=== PATIENT | male | born 1985 | race Caucasian/White ===

== ENCOUNTER 2018-10-11 03:36 | Emergency (ER) | payer SELFPAY ==
--- NOTE | 2018-10-11 04:10 | EDPHYS ---
Physician Documentation [facility] Name: Austyn Marie Age: 33 yrs Sex: Male : 1985 Arrival Date: 10/11/2018 Time: 03:37 Bed 2 Private MD: ED Physician Greg Stephenson HPI: 10/11 04:03 This 33 yrs old Male presents to ER via Unassigned with complaints of ETOH rn intoxication. 04:03 Pt brought in by EMS after being found on neighbor's yard, intoxicated, on ground, rn denies medical complaints, refuses care, very difficult, stable vitals per EMS, denies drug use or ingestion. Admits to drinking but refuses to tell me how much he drank. . Onset: The symptoms/episode began/occurred today. Severity of symptoms: At their worst the symptoms were moderate. It is unknown whether or not the patient has had similar symptoms in the past. It is unknown whether or not the patient has recently seen a physician. - Family history:: not pertinent. - Hospitalizations: : No recent hospitalization is reported. ROS: 04:03 Constitutional: Negative for fever, chills, and weight loss, Eyes: Negative for injury, rn pain, redness, and discharge, Cardiovascular: Negative for chest pain, palpitations, and edema, Respiratory: Negative for shortness of breath, cough, wheezing, and pleuritic chest pain, Abdomen/GI: Negative for abdominal pain, nausea, vomiting, diarrhea, and constipation, MS/Extremity: Negative for injury and deformity, Skin: Negative for injury, rash, and discoloration, Neuro: Negative for headache, weakness, numbness, tingling, and seizure. Exam: 04:03 Constitutional: This is a well developed, well nourished patient who is awake, alert, rn and in no acute distress. Sitting upright in bed, legs crossed, uncooperative. Head/Face: Normocephalic, atraumatic. Eyes: Pupils equal round and reactive to light, extra-ocular motions intact. Lids and lashes normal. Conjunctiva and sclera are non-icteric and not injected. Cornea within normal limits. Periorbital areas with no swelling, redness, or edema. ENT: MMM Cardiovascular: Regular rate and rhythm. No pulse deficits. Respiratory: Lungs have equal breath sounds bilaterally, clear to auscultation MS/ Extremity: Pulses equal, no cyanosis. Neurovascular intact. Full, normal range of motion. Equal circumference. Neuro: Awake and alert, GCS 15, oriented to person, place, and situation. Cranial nerves II-XII grossly intact. Motor strength 5/5 in all extremities. Sensory grossly intact. Vital Signs: 03:45 jd3 03:45 pt refused vital signs jd3 MDM: 03:37 Patient medically screened. rn 04:03 Differential Diagnosis ETOH intoxication. Data reviewed: vital signs, nurses notes. ED rn course: Patient became combative and argumentative, police called, he was worse with police and they handcuffed him and took him to residential. . 10/11 03:39 Order name: IV Start rn 10/11 03:39 Order name: Glucose Level rn 10/11 03:39 Order name: EKG; Complete Time: 03:40 rn 10/11 03:39 Order name: EKG - Nurse/Tech rn Administered Medications: No medications were administered Disposition: 10/11/18 04:08 Discharged to Home. Impression: Alcohol abuse with intoxication. - Condition is Stable. - Discharge Instructions: Alcohol Intoxication. - Medication Reconciliation Form, Thank You Letter, Antibiotic Education, Prescription Opioid Use form. - Follow up: Private Physician; When: As needed; Reason: Recheck today's complaints, Re-evaluation by your physician. - Problem is new. - Symptoms have improved. Signatures: Dispatcher [employer] EDMS Greg Stephenson MD MD rn Davies, Jonathon, RN RN jd3 Corrections: (The following items were deleted from the chart) 04:16 04:08 10/11/2018 04:08 Discharged to Home. Impression: Alcohol abuse with intoxication. jd3 Condition is Stable. Forms are Medication Reconciliation Form, Thank You Letter, Antibiotic Education, Prescription Opioid Use. Follow up: Private Physician; When: As needed; Reason: Recheck today's complaints, Re-evaluation by your physician. Problem is new. Symptoms have improved. rn
--- NOTE | 2018-10-11 04:18 | ER ---
Nurse's Notes [facility] Name: Austyn Marie Age: 33 yrs Sex: Male : 1985 Arrival Date: 10/11/2018 Time: 03:37 Bed 2 Private MD: Diagnosis: Alcohol abuse with intoxication Presentation: 10/11 03:37 Presenting complaint: EMS states: "the pt was found past out in a yard. pt admits to [facility] drinking.". Transition of care: patient was not received from another setting of care. Onset of symptoms was October 11, 2018. Risk Assessment: Do you want to hurt yourself or someone else? Patient reports no desire to harm self or others. Note pt refusing to answer questions. pt released to [place] [employer] custody after refusing treatment. Care prior to arrival: Medication(s) given: Normal saline infusion, 500 mL, IV initiated. 18 GA, in the right antecubital area. 03:37 Method Of Arrival: EMS: [facility] jd3 03:37 Acuity: JACY 3 jd3 - Family history:: not pertinent. - Hospitalizations: : No recent hospitalization is reported. Assessment: 03:45 General: Appears in no apparent distress. well nourished, Behavior is agitated, jd3 uncooperative, Smells of alcohol. Pain: Denies pain. Neuro: No deficits noted. Cardiovascular: Denies chest pain, shortness of breath. Respiratory: Denies cough, shortness of breath labored breathing. GI: No signs and/or symptoms were reported involving the gastrointestinal system. : No signs and/or symptoms were reported regarding the genitourinary system. EENT: No signs and/or symptoms were reported regarding the EENT system. Derm: Skin is intact, Skin is dry, Skin is normal, Skin temperature is warm. Musculoskeletal: Circulation, motion, and sensation intact. Range of motion: intact in all extremities. 03:50 Reassessment: pt refusing treatment. pt is being belligerent with medical staff and j [employer]. Vital Signs: 03:45 jd3 03:45 pt refused vital signs jd3 ED Course: 03:37 Patient arrived in ED. rn 03:37 Greg Stephenson MD is Attending Physician. rn 04:05 Alvaro Brice RN is Primary Nurse. jd3 04:11 Triage completed. jd3 Administered Medications: No medications were administered Outcome: 04:08 Discharge ordered by MD. rn 04:08 Patient left the ED. jd3 04:08 Discharged to Law Enforcement 04:08 Condition: stable 04:08 Discharge instructions given to police. Signatures: Greg Stephenson MD MD rn Davies, Jonathon, RN RN jnathalie Corrections: (The following items were deleted from the chart) 04:19 04:14 Condition: stable jd3 jd3 04:19 04:14 Discharged to Law Enforcement jd3 jd3 04:19 04:14 Discharge instructions given to police, jd3 jd3 04:19 04:16 Patient left the ED. jd3 jd3 04:19 04:12 General: Appears in no apparent distress. well nourished, Behavior is agitated, jd3 uncooperative, Smells of alcohol, jd3 :19 04:12 Pain: Denies pain. jd3 jd3 04:19 04:12 Neuro: No deficits noted. jd3 jd3 04:19 04:12 Cardiovascular: Denies chest pain, shortness of breath, jd3 jd3 04:19 04:12 Respiratory: Denies cough, shortness of breath labored breathing, jd3 jd3 04:19 04:12 GI: No signs and/or symptoms were reported involving the gastrointestinal system. jd3 jd3 04:19 04:12 : No signs and/or symptoms were reported regarding the genitourinary system. [id number] 04:19 04:12 EENT: No signs and/or symptoms were reported regarding the EENT system. jd3 jd3 04:19 04:12 Derm: Skin is intact, Skin is dry, Skin is normal, Skin temperature is warm jd3 jd3 04:19 04:12 Musculoskeletal: Circulation, motion, and sensation intact. Range of motion: jd3 intact in all extremities, jd3 04:21 03:30 General: Appears in no apparent distress. well nourished, Behavior is agitated, jd3 uncooperative, Smells of alcohol, jd3 04:21 03:30 Neuro: No deficits noted. jd3 jd3 04:21 03:30 Cardiovascular: Denies chest pain, shortness of breath, jd3 jd3 04:21 03:30 Pain: Denies pain. jd3 jd3 04:21 03:30 Respiratory: Denies cough, shortness of breath labored breathing, jd3 jd3 03:30 GI: No signs and/or symptoms were reported involving the gastrointestinal system. jd3 jd3 03:30 : No signs and/or symptoms were reported regarding the genitourinary system. [id number] 03:30 EENT: No signs and/or symptoms were reported regarding the EENT system. jd3 jd3 03:30 Derm: Skin is intact, Skin is dry, Skin is normal, Skin temperature is warm j jd3 03:30 Musculoskeletal: Circulation, motion, and sensation intact. Range of motion: j intact in all extremities, [facility] 03:50 Reassessment: pt refusing treatment. angely adair with medical staff and [facility] police. jd3
== END 2018-10-11 04:16 | disposition home or self-care (01) ==
LOC: ER 03:36
DX: F10.129 Alcohol abuse with intoxication, unspecified (principal)
CPT/HCPCS: 99283